=== PATIENT | male | born 1990 | race Asian ===

== ENCOUNTER 2016-08-28 23:42 | Emergency (ER) | payer OTHER ==
[~2016-08-28] VITALS: Ht 172.7 cm; Wt 72.6 kg
== END 2016-08-29 01:30 | disposition home or self-care (01) ==
LOC: ED 23:42
DX: J02.9 Acute pharyngitis, unspecified (principal)
CPT/HCPCS: 99282

== ENCOUNTER 2016-09-15 22:26 | Emergency (ER) | payer OTHER ==
[~2016-09-15] VITALS: Ht 172.7 cm; Wt 73.6 kg
== END 2016-09-16 00:22 | disposition home or self-care (01) ==
LOC: ED 22:26
DX: J06.9 Acute upper respiratory infection, unspecified (principal)
CPT/HCPCS: 87081; 87804; 87880; 99284

== ENCOUNTER 2016-12-24 22:43 | Emergency (ER) | payer OTHER ==
[~2016-12-24] VITALS: Ht 172.7 cm; Wt 72.6 kg
== END 2016-12-24 23:04 | disposition home or self-care (01) ==
LOC: ED 22:43
DX: R11.2 Nausea with vomiting, unspecified (principal); R19.7 Diarrhea, unspecified
CPT/HCPCS: 99281